=== PATIENT | male | born 1945 | race Caucasian/White ===

== ENCOUNTER 2016-05-24 07:43 | Day surgery (SDC) | payer MEDICARE, BC ==
[~2016-05-24 07:43] MED LIST: Metoclopramide 10 MG/2 ML SDV IV PRN; Sodium Chloride 0.9% 1,000 ML IV SCH; Sodium Chloride 0.9% 10 ML Syringe FLUSH PRN
[2016-05-24] MEDS ORDERED: Propofol 200 MG/20 ML SDV ONE (10:40)
--- NOTE | 2016-05-24 11:25 | OR ---
DATE OF OPERATION: 05/24/2016 PREOPERATIVE DIAGNOSIS: Colorectal cancer screening due. POSTOPERATIVE DIAGNOSIS: Pancolonic diverticulosis, worse in the sigmoid. SURGEON: Naomi Chairez DO ANESTHESIA: General per Aj Schrader CRNA. ESTIMATED BLOOD LOSS: Less than 10 mL. PROCEDURE: Colonoscopy. DESCRIPTION OF PROCEDURE: After informed consent was obtained, the patient was taken to the endoscopy suite, and placed in a left lateral decubitus position with all pressure points, bony prominences, and neurovascular bundles padded appropriately and with no undue tension. The Department of Anesthesia initiated cardiopulmonary monitoring and performed sedation. A digital rectal examination was performed which was within normal limits. Then, a well- lubricated Olympus colonoscope was inserted into the anus and advanced through the rectum, sigmoid colon, descending colon, splenic flexure, transverse colon, hepatic flexure, ascending colon, and cecum. The prep was excellent allowing for complete visualization of all mucosal surfaces. There was pancolonic diverticulosis, worse in the sigmoid. None of the diverticula were impacted, bleeding, or inflamed. The scope was slowly withdrawn from the cecum and all surface mucosal anatomy was again reviewed without any further abnormalities being identified. The colonoscope was straightened, as much air as possible was evacuated, and the scope was removed. The patient tolerated the procedure well. Was taken to postanesthesia care unit in stable condition. BRIA/LORA /[id number]
[2016-05-24 13:15] VITALS: BP 160/90
== END 2016-05-24 13:00 | disposition home or self-care (01) ==
LOC: LB.SDS 07:43
PROVIDERS: ATTEND Surgery
DX: Z12.11 Encounter for screening for malignant neoplasm of colon (principal); K57.30 Diverticulosis of large intestine without perforation or abscess without bleeding; E11.22 Type 2 diabetes mellitus with diabetic chronic kidney disease; N18.9 Chronic kidney disease, unspecified; R97.20 Elevated prostate specific antigen [PSA]; J44.9 Chronic obstructive pulmonary disease, unspecified; Z98.84 Bariatric surgery status; Z79.899 Other long term (current) drug therapy
CPT/HCPCS: G0121; J2704